=== PATIENT | male | born 1995 | race Caucasian/White ===

== ENCOUNTER 2018-03-25 00:31 | Emergency (ER) | payer OTHER ==
--- NOTE | 2018-03-25 00:54 | ED ---
Substance Abuse/Use - HPI Summary HPI Summary: Pt is a 22 year old M presenting to the ED brought in by the police for intoxication. Full physical and hx unobtainable due to intoxication/pt unresponsiveness. - History Of Current Complaint Chief Complaint: EDSubstanceAbuse Stated Complaint: 2208 Time Seen by Provider: 03/25/18 00:36 Hx Obtained From: Patient Hx From Patient Unobtainable Due To: Other - intoxication Onset/Duration of Drug/ETOH Abuse: Hours Ingestion History: Type/Name Of Drug - EtOH Overdose Characteristics: Oral Timing Of Abuse: Binge Use Severity Initially: Moderate Severity Currently: Moderate Character: Stuporous Aggravating Factor(s): Nothing Alleviating Factor(s): Nothing Associated Signs And Symptoms: Hostile PMH/Surg Hx/FS Hx/Imm Hx Previously Healthy: Yes - unable to confirm due to intoxication Infectious Disease History: Unable to Obtain/Confirm Infectious Disease History: Denies: Traveled Outside the [place] in Last 30 Days - Family History Known Family History: Positive: Unknown - unable to confirm - Additional Comments History Additional Comments: Unable to obtain full hx due to pt's intoxication status. Review of Systems Negative: Fever Positive: Other - sneezing All Other Systems Reviewed And Are Negative: Yes Physical Exam - Summary Physical Exam Summary: VITAL SIGNS: Reviewed. GENERAL: Patient is a well-developed and nourished male who is lying comfortable in the stretcher. Patient is not in any acute respiratory distress. HEAD AND FACE: No signs of trauma. No ecchymosis, hematomas or skull depressions. No sinus tenderness. EYES: PERRLA, EOMI x 2, No injected conjunctiva, no nystagmus. EARS: Hearing grossly intact. Ear canals and tympanic membranes are within normal limits. MOUTH: Oropharynx within normal limits. NECK: Supple, trachea is midline, no adenopathy, no JVD, no carotid bruit, no c- spine tenderness, neck with full ROM. CHEST: Symmetric, no tenderness at palpation LUNGS: Clear to auscultation bilaterally. No wheezing or crackles. CVS: Regular rate and rhythm, S1 and S2 present, no murmurs or gallops appreciated. ABDOMEN: Soft, non-tender. No signs of distention. No rebound no guarding, and no masses palpated. Bowel sounds are normal. EXTREMITIES: FROM in all major joints, no edema, no cyanosis or clubbing. NEURO: Responsive to loud verbal stimuli. SKIN: Dry and warm Triage Information Reviewed: Yes Vital Signs On Initial Exam: Initial Vitals Temp Pulse Resp BP Pulse Ox 97.9 F 109 16 146/86 97 03/25/18 00:42 03/25/18 00:42 03/25/18 00:42 03/25/18 00:42 03/25/18 00:42 Vital Signs Reviewed: Yes Completion Of Physical Exam Limited Due To: Other - intoxication Diagnostics - Vital Signs Vital Signs Temp Pulse Resp BP Pulse Ox 03/25/18 00:42 97.9 F 109 16 146/86 97 - Laboratory Lab Statement: Any lab studies that have been ordered have been reviewed, and results considered in the medical decision making process. Course/Dx - Course Course Of Treatment: Pt is a 22 y/o M brought in by police due to intoxication. Pt is mildly hostile, sneezing very loudly. Pt is reponsive to loud verbal stimulation. - Diagnoses Provider Diagnoses: Alcohol intoxication Discharge - Sign-Out/Discharge Documenting (check all that apply): Sign-Out Patient Signing out patient TO: Sha Klein - Discharge Plan Condition: Stable Disposition: HOME - Attestation Statements Document Initiated by Scribe: Yes Documenting Scribe: Mery Martinez Provider For Whom Scribe is Documenting (Include Credential): Lorna Rosales MD. Scribe Attestation: Mery Freeman, scribed for Lorna Rosales MD. on 03/25/18 at 0646.
[2018-03-25] MEDS ORDERED: LORazepam INJ* 2 MG/ML 1 ML VIAL ONE (00:58)
[2018-03-25] MEDS ORDERED: Haloperidol INJ IV/IM* 5 MG/ML AMP ONE (00:58)
[2018-03-25] MEDS ORDERED: Haloperidol INJ IV/IM* 5 MG/ML AMP IM ONE (01:35)
[2018-03-25] MEDS ORDERED: LORazepam INJ* 2 MG/ML 1 ML VIAL IM ONE (01:35)
--- NOTE | 2018-03-25 08:03 | ED ---
Progress - Progress Note Progress Note: Receiving sign out from Dr. Rosales. Pending sobriety and discharge. Final dx is alcohol intoxication and pt will be discharged home. Re-Evaluation - Re-Evaluation First Eval Re-Evaluation Time: 07:15 Change: Unchanged Comment: Pt is still sleeping and not responsive to voice. Second Eval Re-Evaluation Time: 08:00 Change: Unchanged Comment: Pt is still sleeping and not responsive to voice. Third Eval Re-Evaluation Time: 09:29 Change: Improved Comment: Pt is now awake and ready to be discharged. Course/Dx - Course Course Of Treatment: Patient sobered in the ER now demonstrates functional capacity consisting of clear speech, steady gait and ability to reason normally. He has returned to baseline mental status. Safe ride arranged. - Diagnoses Provider Diagnoses: Alcohol intoxication Discharge - Sign-Out/Discharge Documenting (check all that apply): Patient Departure - Discharge, Receiving Sign-Out Receiving patient FROM: Beverly Rosales - Discharge Plan Condition: Improved Disposition: HOME Patient Education Materials: Alcohol Intoxication (ED) Referrals: [facility] [place] [facility] [place] [facility] [Outside] Additional Instructions: Do not drive today. Never drink to excess. Return if worse, new symptoms or other concerns. - Billing Disposition and Condition Condition: IMPROVED Disposition: Home - Attestation Statements Document Initiated by Scribe: Yes Documenting Scribe: Cyndi Sanchez Provider For Whom Magy is Documenting (Include Credential): Sha Klein MD Scribe Attestation: Cyndi Freeman, scribed for Sha Klein MD on 03/25/18 at 1144. Scribe Documentation Reviewed: Yes Provider Attestation: The documentation as recorded by the Cyndi hunt accurately reflects the service I personally performed and the decisions made by me, Sha Klein MD
[2018-03-25 09:35] VITALS: BP 127/73
== END 2018-03-25 09:34 | disposition home or self-care (01) ==
LOC: EDBD → ED 00:31
DX: F10.129 Alcohol abuse with intoxication, unspecified (principal)
CPT/HCPCS: 96372; 99284; J1630; J2060